=== PATIENT | female | born 1975 | race Caucasian/White ===

== ENCOUNTER 2021-10-13 12:49 | Emergency (ER) | payer OTHER ==
[~2021-10-13 12:49] MED LIST: ACID CONTROL150 MG PO; CEFUROXIME500 MG PO; COLACE 100MG C100 MG PO; FLOVENT 110 MC7.9 GM INH; VENTOLIN HFA 66.7 GM INH
[2021-10-13] MEDS ORDERED: IBUPROFEN800 MG PO (13:55)
[2021-10-13] MEDS ORDERED: DOXYCYCLINE MO100 MG PO (13:55)
== END 2021-10-13 14:18 | disposition home or self-care (01) ==
LOC: ER1 12:49
DX: L03.811 Cellulitis of head [any part, except face] (principal); I10 Essential (primary) hypertension; F17.200 Nicotine dependence, unspecified, uncomplicated; Z90.89 Acquired absence of other organs; Z90.710 Acquired absence of both cervix and uterus; Z88.1 Allergy status to other antibiotic agents; Z88.0 Allergy status to penicillin
CPT/HCPCS: 99283

== ENCOUNTER 2021-11-01 04:36 | Observation (INO) | payer OTHER ==
[~2021-11-01] VITALS: Ht 170.2 cm; Wt 62.1 kg
[~2021-11-01 04:36] MED LIST changes: +DOXYCYCLINE MO100 MG PO; +IBUPROFEN800 MG PO; +PROVENTIL HFA6.7 GM INH; -VENTOLIN HFA 66.7 GM INH
[2021-11-01 05:05] LABS: HEMOGLOBIN 14.7 gm/dl (12.3-15.3); RED BLOOD COUNT 4.71 M/UL (4.00-5.10); WHITE BLOOD COUNT 12.2 K/UL (4.5-11.0)
[2021-11-01 05:23] LABS: BUN/CREATININE RATIO 15 (0-10)
[2021-11-02] MEDS ORDERED: LEVOFLOXACIN750 MG PO ×2 (11:57→12:07)
[2021-11-02] MEDS ORDERED: CLINDAMYCIN HC300 MG PO (12:01)
[2021-11-02] MEDS ORDERED: HYDROCODON-ACE1 EAC2 PO (12:03)
[2021-11-02] MEDS ORDERED: CLEOCIN HCL300 MG PO (12:07)
== END 2021-11-02 13:52 | disposition home or self-care (01) ==
LOC: ER1 04:36 → M/S 15:05
PROVIDERS: ADMIT Orthopaedic Surgery
PROC: 0JQD0ZZ Repair Right Upper Arm Subcutaneous Tissue and Fascia, Open Approach (ICD-10-PCS; principal; 2021-11-01 13:00)
DX: S51.851A Open bite of right forearm, initial encounter (principal); I50.9 Heart failure, unspecified; M19.90 Unspecified osteoarthritis, unspecified site; J45.909 Unspecified asthma, uncomplicated; F17.210 Nicotine dependence, cigarettes, uncomplicated; Z23 Encounter for immunization; Z88.0 Allergy status to penicillin; Z88.5 Allergy status to narcotic agent; Z88.8 Allergy status to other drugs, medicaments and biological substances; W54.0XXA Bitten by dog, initial encounter
CPT/HCPCS: 73090; 73130; 80053; 85025; 90471; 90715; 96365; 96375; 99285; J1100; J1885; J2001; J2405; J2704; J3010; J7070